=== PATIENT | female | born 1985 | race Caucasian/White ===

== ENCOUNTER → 2016-09-21 | Outpatient (CLI) | payer OTHER | LOC: FIMAGING 11:21 | PROVIDERS: ATTEND Advanced Practice Midwife | DX: Z34.01 Encounter for supervision of normal first pregnancy, first trimester (principal); Z3A.01 Less than 8 weeks gestation of pregnancy ==

== ENCOUNTER → 2016-12-29 | Outpatient (CLI) | payer OTHER | LOC: FIMAGING 11:25 | PROVIDERS: ATTEND Advanced Practice Midwife | DX: Z34.82 Encounter for supervision of other normal pregnancy, second trimester (principal); Z3A.21 21 weeks gestation of pregnancy; Z87.59 Personal history of other complications of pregnancy, childbirth and the puerperium ==

== ENCOUNTER 2017-04-23 00:10 | Observation (INO) | payer OTHER ==
[2017-04-23] MEDS ORDERED: HYDROmorphONE/DILAUDID 2 MG/ML INJ ONE ×2 (00:15)
[2017-04-23] MEDS ORDERED: ceFAZolin 2 GM/DEXTROSE 100 ML IV ONE ×2 (00:54)
[2017-04-23] MEDS ORDERED: PHENYLEPHRINE HCL 100 MCG/ML SYR ONE ×2 (01:10)
[2017-04-23] MEDS ORDERED: OXYTOCIN 10 UNIT/ML VIAL ONE ×2 (01:12)
[2017-04-23] MEDS ORDERED: PHENYLEPHRINE HCL 100 MCG/ML SYR IVP PRN ×2 (01:25)
[2017-04-23] MEDS ORDERED: OXYTOCIN 20 UNIT in LR 1,000 ML IV SCH (01:30)
[2017-04-23] MEDS ORDERED: METHYLERGONOVINE MAL 0.2 MG/ML INJ ONE ×2 (01:34)
[2017-04-23] MEDS ORDERED: METHYLERGONOVINE MAL 0.2 MG/ML INJ IM ONE ×2 (01:35)
--- NOTE | 2017-04-23 01:47 | PDGENHP ---
History and Physical - Chief Complaint retained placenta - History of Present Illness This is a [id number] s/p 04/22/17 @ 2305, transfer of care from the [facility], secondary to retained placenta. EBL on arrival is approximately 1000mL. Patient is asymptomatic- denies any dizziness, lightheadedness. She is A&Ox3. History Information - Allergies/Home Medication List Allergies/Adverse Reactions: No Known Allergies Allergy (Unverified 10/16/15 13:37) I have personally reviewed and updated: family history, medical history, social history, surgical history - Past Medical History no pertinent PMH - Surgical History Reports: no pertinent surgical hx - Social History Smoking Status: Never smoked Alcohol Use: None Drug Use: None Review of Systems Review of Systems: Constitutional: Reports: no symptoms EENMT: Reports: no symptoms Cardiac: Reports: no symptoms Respiratory: Reports: no symptoms Gastrointestinal: Reports: no symptoms Genitourinary: Reports: no symptoms Muscolosketal: Reports: no symptoms Skin: Reports: no symptoms Neurological: Reports: no symptoms Hematologic/Lymphatic: Reports: no symptoms Physical Exam Physical Exam: Constitutional: no apparent distress, appears nourished, not in pain Eyes: PERRL Ears, Nose, Mouth, Throat: moist mucous membranes, hearing normal Cardiovascular: regular rate and rhythym, no murmur, rub, or gallop Respiratory: no respiratory distress, no rales or rhonchi Gastrointestinal: soft, non-tender abdomen Skin: warm, normal color Neurologic: AAOx3 Lab Data & Imaging Review 04/23/17 00:25 Hgb 11.0 g/dL (12.6-16.3) L 04/23/17 00:25 Hct 31.9 % (38.0-47.0) L 04/23/17 00:25 Assessment & Plan Assessment: [id number] s/p retained placenta PPH (approx 1800) hypotensive Plan: Admit to L&D manual removal of placenta IV fluids/volume expansion stat H/H- will repeat H/H in the morning monitor bleeding closely routine PP care anticipate d/c home 24-48hours.
--- NOTE | 2017-04-23 01:47 | PDGENHP ---
History and Physical - Chief Complaint retained placenta - History of Present Illness This is a [id number] s/p 04/22/17 @ 2305, transfer of care from the [facility], secondary to retained placenta. EBL on arrival is approximately 1000mL. Patient is asymptomatic- denies any dizziness, lightheadedness. She is A&Ox3. History Information - Allergies/Home Medication List Allergies/Adverse Reactions: No Known Allergies Allergy (Unverified 10/16/15 13:37) I have personally reviewed and updated: family history, medical history, social history, surgical history - Past Medical History no pertinent PMH - Surgical History Reports: no pertinent surgical hx - Social History Smoking Status: Never smoked Alcohol Use: None Drug Use: None Review of Systems Review of Systems: Constitutional: Reports: no symptoms EENMT: Reports: no symptoms Cardiac: Reports: no symptoms Respiratory: Reports: no symptoms Gastrointestinal: Reports: no symptoms Genitourinary: Reports: no symptoms Muscolosketal: Reports: no symptoms Skin: Reports: no symptoms Neurological: Reports: no symptoms Hematologic/Lymphatic: Reports: no symptoms Physical Exam Physical Exam: Constitutional: no apparent distress, appears nourished, not in pain Eyes: PERRL Ears, Nose, Mouth, Throat: moist mucous membranes, hearing normal Cardiovascular: regular rate and rhythym, no murmur, rub, or gallop Respiratory: no respiratory distress, no rales or rhonchi Gastrointestinal: soft, non-tender abdomen Skin: warm, normal color Neurologic: AAOx3 Lab Data & Imaging Review 04/23/17 00:25 Hgb 11.0 g/dL (12.6-16.3) L 04/23/17 00:25 Hct 31.9 % (38.0-47.0) L 04/23/17 00:25 Assessment & Plan Assessment: [id number] s/p retained placenta PPH (approx 1800) hypotensive Plan: Admit to L&D manual removal of placenta IV fluids/volume expansion stat H/H- will repeat H/H in the morning monitor bleeding closely routine PP care anticipate d/c home 24-48hours.
--- NOTE | 2017-04-23 01:47 | PDGENHP ---
History and Physical - Chief Complaint retained placenta - History of Present Illness This is a [id number] s/p 04/22/17 @ 2305, transfer of care from the [facility], secondary to retained placenta. EBL on arrival is approximately 1000mL. Patient is asymptomatic- denies any dizziness, lightheadedness. She is A&Ox3. History Information - Allergies/Home Medication List Allergies/Adverse Reactions: No Known Allergies Allergy (Unverified 10/16/15 13:37) I have personally reviewed and updated: family history, medical history, social history, surgical history - Past Medical History no pertinent PMH - Surgical History Reports: no pertinent surgical hx - Social History Smoking Status: Never smoked Alcohol Use: None Drug Use: None Review of Systems Review of Systems: Constitutional: Reports: no symptoms EENMT: Reports: no symptoms Cardiac: Reports: no symptoms Respiratory: Reports: no symptoms Gastrointestinal: Reports: no symptoms Genitourinary: Reports: no symptoms Muscolosketal: Reports: no symptoms Skin: Reports: no symptoms Neurological: Reports: no symptoms Hematologic/Lymphatic: Reports: no symptoms Physical Exam Physical Exam: Constitutional: no apparent distress, appears nourished, not in pain Eyes: PERRL Ears, Nose, Mouth, Throat: moist mucous membranes, hearing normal Cardiovascular: regular rate and rhythym, no murmur, rub, or gallop Respiratory: no respiratory distress, no rales or rhonchi Gastrointestinal: soft, non-tender abdomen Skin: warm, normal color Neurologic: AAOx3 Lab Data & Imaging Review 04/23/17 00:25 Hgb 11.0 g/dL (12.6-16.3) L 04/23/17 00:25 Hct 31.9 % (38.0-47.0) L 04/23/17 00:25 Assessment & Plan Assessment: [id number] s/p retained placenta PPH (approx 1800) hypotensive Plan: Admit to L&D manual removal of placenta IV fluids/volume expansion stat H/H- will repeat H/H in the morning monitor bleeding closely routine PP care anticipate d/c home 24-48hours.
[2017-04-23] MEDS ORDERED: HYDROmorphONE/DILAUDID 1 MG/ML INJ IVP PRN ×2 (01:52)
[2017-04-23] MEDS ORDERED: LR 1,000 ML IV SCH ×2 (02:30)
[2017-04-23] MEDS ORDERED: ACETAMINOPHEN 325 MG TAB PO PRN ×2 (07:16)
[2017-04-23] MEDS ORDERED: SIMETHICONE 80 MG TAB CHEW PO PRN ×2 (07:16)
[2017-04-23] MEDS ORDERED: DOCUSATE SODIUM 100 MG CAP PO PRN ×2 (07:16)
[2017-04-23] MEDS ORDERED: HYDROCORTISONE 0.5% CREAM TP PRN ×2 (07:16)
[2017-04-23] MEDS ORDERED: HYDROCODONE/APAP 5/325 TAB PO PRN ×2 (07:16)
[2017-04-23] MEDS: IBUPROFEN 600 MG TAB PO PRN ×4 (07:57→14:00)
--- NOTE | 2017-04-23 12:14 | OBPP ---
Progress Note Assessment/Plan: Assessment: 31-year-old PPD#1 s/p at [facility] complicated by retained placenta and PPH. Doing well s/p manual removal of placenta, uterotonics, repeat H&H, and close monitoring of hemodynamic status. She desires DC home today with close follow-up. Plan: OK to DC home today with close follow-up with nurse mechanical engineering officer, supplemental iron, and strict precautions regarding possible development symptomatic anemia. 04/23/17 12:12 Subjective/ Course: 04/23/17 12:09 Patient feels good despite significant blood loss with PPH/retained placenta overnight. She is ambulating without feeling significantly faint or weak or short of breath. She is . She reports minimal lochia. She reports minimal uterine cramping. She desires DC home today if possible. She says she is able to follow-up with her nurse mechanical engineering officer for follow-up H&H. Objective: 04/23/17 06:50 Uterine Position/Fundal Height: Umbilicus -2 Uterine Tone: Firm Physical Exam - Physical Exam EENT: normal ENT inspection Neck: non-tender, full range of motion, supple Respiratory: chest non-tender, lungs clear, normal breath sounds Cardiac/Chest: normal peripheral pulses, regular rate, rhythm Abdomen: normal bowel sounds, non-tender, soft Extremities: normal range of motion, non-tender DTR- Lower Extremities: Knee (R): 1+, Knee (L): 1+ Skin: normal color, warm/dry Neuro/Psych: no motor/sensory deficits, alert, normal mood/affect, oriented x 3
--- NOTE | 2017-04-23 12:14 | OBPP ---
Progress Note Assessment/Plan: Assessment: 31-year-old PPD#1 s/p at [facility] complicated by retained placenta and PPH. Doing well s/p manual removal of placenta, uterotonics, repeat H&H, and close monitoring of hemodynamic status. She desires DC home today with close follow-up. Plan: OK to DC home today with close follow-up with nurse academy education director, supplemental iron, and strict precautions regarding possible development symptomatic anemia. 04/23/17 12:12 Subjective/ Course: 04/23/17 12:09 Patient feels good despite significant blood loss with PPH/retained placenta overnight. She is ambulating without feeling significantly faint or weak or short of breath. She is . She reports minimal lochia. She reports minimal uterine cramping. She desires DC home today if possible. She says she is able to follow-up with her nurse academy education director for follow-up H&H. Objective: 04/23/17 06:50 Uterine Position/Fundal Height: Umbilicus -2 Uterine Tone: Firm Physical Exam - Physical Exam EENT: normal ENT inspection Neck: non-tender, full range of motion, supple Respiratory: chest non-tender, lungs clear, normal breath sounds Cardiac/Chest: normal peripheral pulses, regular rate, rhythm Abdomen: normal bowel sounds, non-tender, soft Extremities: normal range of motion, non-tender DTR- Lower Extremities: Knee (R): 1+, Knee (L): 1+ Skin: normal color, warm/dry Neuro/Psych: no motor/sensory deficits, alert, normal mood/affect, oriented x 3
--- NOTE | 2017-04-23 12:14 | OBPP ---
Progress Note Assessment/Plan: Assessment: 31-year-old PPD#1 s/p at [facility] complicated by retained placenta and PPH. Doing well s/p manual removal of placenta, uterotonics, repeat H&H, and close monitoring of hemodynamic status. She desires DC home today with close follow-up. Plan: OK to DC home today with close follow-up with nurse janitor cleaner, supplemental iron, and strict precautions regarding possible development symptomatic anemia. 04/23/17 12:12 Subjective/ Course: 04/23/17 12:09 Patient feels good despite significant blood loss with PPH/retained placenta overnight. She is ambulating without feeling significantly faint or weak or short of breath. She is . She reports minimal lochia. She reports minimal uterine cramping. She desires DC home today if possible. She says she is able to follow-up with her nurse janitor cleaner for follow-up H&H. Objective: 04/23/17 06:50 Uterine Position/Fundal Height: Umbilicus -2 Uterine Tone: Firm Physical Exam - Physical Exam EENT: normal ENT inspection Neck: non-tender, full range of motion, supple Respiratory: chest non-tender, lungs clear, normal breath sounds Cardiac/Chest: normal peripheral pulses, regular rate, rhythm Abdomen: normal bowel sounds, non-tender, soft Extremities: normal range of motion, non-tender DTR- Lower Extremities: Knee (R): 1+, Knee (L): 1+ Skin: normal color, warm/dry Neuro/Psych: no motor/sensory deficits, alert, normal mood/affect, oriented x 3
--- NOTE | 2017-04-23 12:17 | OBGCSDC ---
General Delivery Information - General Info : 2 Para: 2 Abortions: 0 L&D Analgesia/Anesthesia Type: None Admission Date: 04/23/17 Labs: Hct 24.3 % (38.0-47.0) L D 04/23/17 06:50 - Hospital Course : 04/23/17 12:09 Patient feels good despite significant blood loss with PPH/retained placenta overnight. She is ambulating without feeling significantly faint or weak or short of breath. She is . She reports minimal lochia. She reports minimal uterine cramping. She desires DC home today if possible. She says she is able to follow-up with her nurse irb compliance coordinator for follow-up H&H. Discharge Information - Discharge Information Prescriptions: Docusate Sodium [Colace 100 MG (*)] 100 mg PO BID PRN #60 cap PRN Reason: Constipation Iron Polysacch/Iron Heme Polyp [Bifera] 28 mg PO BID #60 tab Instruction/Follow Up: Two Weeks (For H&H check, sooner if symptomatic anemia develops.)
--- NOTE | 2017-04-23 12:17 | OBGCSDC ---
General Delivery Information - General Info : 2 Para: 2 Abortions: 0 L&D Analgesia/Anesthesia Type: None Admission Date: 04/23/17 Labs: Hct 24.3 % (38.0-47.0) L D 04/23/17 06:50 - Hospital Course : 04/23/17 12:09 Patient feels good despite significant blood loss with PPH/retained placenta overnight. She is ambulating without feeling significantly faint or weak or short of breath. She is . She reports minimal lochia. She reports minimal uterine cramping. She desires DC home today if possible. She says she is able to follow-up with her nurse airport operations specialist for follow-up H&H. Discharge Information - Discharge Information Prescriptions: Docusate Sodium [Colace 100 MG (*)] 100 mg PO BID PRN #60 cap PRN Reason: Constipation Iron Polysacch/Iron Heme Polyp [Bifera] 28 mg PO BID #60 tab Instruction/Follow Up: Two Weeks (For H&H check, sooner if symptomatic anemia develops.)
--- NOTE | 2017-04-23 12:17 | OBGCSDC ---
General Delivery Information - General Info : 2 Para: 2 Abortions: 0 L&D Analgesia/Anesthesia Type: None Admission Date: 04/23/17 Labs: Hct 24.3 % (38.0-47.0) L D 04/23/17 06:50 - Hospital Course : 04/23/17 12:09 Patient feels good despite significant blood loss with PPH/retained placenta overnight. She is ambulating without feeling significantly faint or weak or short of breath. She is . She reports minimal lochia. She reports minimal uterine cramping. She desires DC home today if possible. She says she is able to follow-up with her nurse senior reactor operator for follow-up H&H. Discharge Information - Discharge Information Prescriptions: Docusate Sodium [Colace 100 MG (*)] 100 mg PO BID PRN #60 cap PRN Reason: Constipation Iron Polysacch/Iron Heme Polyp [Bifera] 28 mg PO BID #60 tab Instruction/Follow Up: Two Weeks (For H&H check, sooner if symptomatic anemia develops.)
== END 2017-04-23 16:10 | disposition home or self-care (01) ==
LOC: FLD 00:10
PROVIDERS: ADMIT Advanced Practice Midwife; ATTEND Obstetrics & Gynecology Gynecology
PROC: 10D17ZZ Extraction of Products of Conception, Retained, Via Natural or Artificial Opening (ICD-10-PCS; principal; 2017-04-23)
DX: O72.0 Third-stage hemorrhage (principal)
CPT/HCPCS: 59414; G0378; J0690; J1170; J2210; J2370